=== PATIENT | male | born 1945 | race Caucasian/White ===

== ENCOUNTER 2016-05-30 08:59 | Day surgery (SDC) | payer MEDICARE, OTHER ==
[~2016-05-30 08:59] MED LIST: Lactated Ringers 1,000 ML IV SCH; Sodium Chloride 0.9% 10 ML Syringe FLUSH PRN
[2016-05-30] MEDS ORDERED: Midazolam 1 MG/ML 2 ML SDV ONE ×2 (09:54→10:00)
[2016-05-30] MEDS ORDERED: Propofol 200 MG/20 ML SDV ONE ×2 (09:55→10:00)
--- NOTE | 2016-05-30 09:57 | PCM.PN ---
- General Info Date of Service: 05/30/16 - Review of Systems Systems Review Comment:: 70-year-old male here for colonoscopy. His last colonoscopy was 2 years ago. He has a history of colon polyps including a larger polyp in the transverse colon which was biopsied last time but it was unclear whether that it was completely removed. The patient states he is been feeling well since his last colonoscopy. He denies any rectal bleeding or change in bowel habits. I have discussed the proposed colonoscopy with the patient. He understands indications options and risks and agrees to proceed. There is been no significant change since his recent exam by Rosalio Real. - Patient Data Vitals - most recent: Last Vital Signs Temp 97.3 F 05/30/16 09:35 Pulse 82 05/30/16 09:35 Resp 20 05/30/16 09:35 BP 141/75 H 05/30/16 09:35 Pulse Ox 100 05/30/16 09:35 Weight - most recent: 95.254 kg Med Orders - Current: Current Medications Lactated Ringer's (Ringers, Lactated) 1,000 mls @ 125 mls/hr IV ASDIRECTED [facility] Last Admin: 05/30/16 09:47 Dose: 125 mls/hr Sodium Chloride (Saline Flush) 10 ml FLUSH ASDIRECTED PRN PRN Reason: Keep Vein Open - Problem List Review Problem List Initiated/Reviewed/Updated: Yes - My Orders Last 24 Hours: My Active Orders 05/30/16 08:00 Patient Status [ADT] Routine Patient to Empty Bladder [RC] ASDIRECTED Peripheral IV Care [RC] ROUTINE Verify Patient Consent Obtain [RC] ROUTINE Lactated Ringers [Ringers, Lactated] 1,000 ml IV ASDIRECTED Sodium Chloride 0.9% [Saline Flush] 10 ml FLUSH ASDIRECTED PRN Peripheral IV Insertion Adult [OM.PC] Routine - Assessment Assessment:: History of colon polyps - Plan Plan:: Colonoscopy
--- NOTE | 2016-05-30 10:43 | PCM.OPNOTE ---
- General Post-Op/Procedure Note Date of Surgery/Procedure: 05/30/16 Operative Procedure(s): Colonoscopy with Bx Findings: Sessile Transverse Colon Polyp Mild Sigmoid Diverticulosis Pre Op Diagnosis: History of Colon Polyp Post-Op Diagnosis: Colon Polyp. Diverticulosis Anesthesia Technique: MAC Primary Surgeon: Kailash Marin Pathology: Biopsies of Transverse Colon Polyp Output, Urine Amount: 0 EBL in mLs: 3 Complications: None Condition: Good Free Text/Narrative:: Intake & Output 05/29/16 05/30/16 05/30/16 22:59 06:59 14:59 Intake Total 400 Balance 400
[2016-05-30 11:15] VITALS: BP 121/76
--- NOTE | 2016-05-30 16:57 | OR ---
Date of Procedure: 05/30/2016 PREOPERATIVE DIAGNOSIS: History of colon polyps. POSTOPERATIVE DIAGNOSES: 1. Colon polyp. 2. Diverticulosis. OPERATION PERFORMED: Colonoscopy with biopsy. INDICATIONS FOR SURGERY: This 70-year-old male has a known history of colon polyps including a broad-based polyp which was noted during his last exam in the transverse colon. He comes today for a surveillance colonoscopy. FINDINGS: In the midtransverse colon, the patient has a broad-based flat polyp on a colon fold. It is estimated at 3 cm in size. It is soft and slightly irregular. No other polyps were noted during the exam. The patient has a mild degree of sigmoid diverticulosis. PROCEDURE: The patient was taken to the operating room. He was given intravenous sedation and with him in the left lateral decubitus position, digital rectal exam was performed showing no rectal masses. The Olympus colonoscope was inserted into the rectum. Retroflexed examination of the rectal canal was performed. The scope was then carefully advanced under direct visualization to the mid transverse colon area where the above-described polyp was identified. This polyp was too broad-based to remove using standard colonoscopy polypectomy technique, so multiple cold biopsies were taken of the polyp to establish diagnosis. The polyp was not completely removed in this manner. The scope was then carefully advanced through the remaining length of the colon until the cecum was reached. Cecal acquisition is confirmed by noting the normal internal cecal anatomy including the appendiceal orifice and ileocecal valve. The light was also noted to transilluminate the abdominal wall in the right lower quadrant. The ileocecal valve was cannulated and the terminal ileum was examined and found to also appear normal. The scope was then slowly withdrawn sequentially re-examining the colonic segments until the entire colon and rectum had been examined. With no sign of any complicating process, the scope was removed. The patient was then taken from the operating room in satisfactory condition. ESTIMATED BLOOD LOSS: 3 mL. COMPLICATIONS: None. PROGNOSIS: Good. SHYAM Marin MD /[id number]
== END 2016-05-30 11:30 | disposition home or self-care (01) ==
LOC: LL.SDS 08:59
PROVIDERS: ATTEND Surgery
DX: Z12.11 Encounter for screening for malignant neoplasm of colon (principal); D12.3 Benign neoplasm of transverse colon; K57.30 Diverticulosis of large intestine without perforation or abscess without bleeding; Z88.8 Allergy status to other drugs, medicaments and biological substances; Z90.49 Acquired absence of other specified parts of digestive tract; Z98.890 Other specified postprocedural states; Z79.82 Long term (current) use of aspirin; Z79.899 Other long term (current) drug therapy
CPT/HCPCS: 45380; J2250; J2704; J7120; 00810-QZ; 88305

== ENCOUNTER 2017-09-06 20:33 | Emergency (ER) | payer MEDICARE, OTHER ==
[2017-09-06 20:42] VITALS: BP 142/78
--- NOTE | 2017-09-06 21:24 | EDM.PDOC ---
ED HPI GENERAL MEDICAL PROBLEM - General Chief Complaint: General Stated Complaint: swelling and pain to Right jaw started 2 days ago Time Seen by Provider: 09/06/17 21:00 Source of Information: Reports: Patient History Limitations: Reports: No Limitations - History of Present Illness INITIAL COMMENTS - FREE TEXT/NARRATIVE: right upper jaw/tooth pain and swelling for 3 days. No fever/chills. No GI changes. Recent multiple tooth extraction as well as dental work 3 weeks ago. No other complaints/reported changes. Right Upper Oral/Mouth Pain Score (Numeric/FACES): 7 - Related Data Allergies Allergy/AdvReac Type Severity Reaction Status Date / Time atorvastatin calcium Allergy Shaking Verified 09/06/17 20:35 [From Lipitor] Home Meds: Home Meds Ascorbic Acid 500 mg PO QAM 03/09/14 [History] Calcium Carbonate [Tums Extra Strength] 750 mg PO DAILY 03/09/14 [History] Cholecalciferol (Vitamin D3) [Vitamin D3] 400 units PO QPM@1700 03/09/14 [ History] Famotidine [Pepcid] 20 mg PO BID 03/09/14 [History] Lisinopril [Zestril] 30 mg PO QAM 03/09/14 [History] Metoprolol Succinate [Toprol XL] 25 mg PO DAILY 03/09/14 [History] Docusate Sodium [Colace] 100 mg PO DAILY 02/29/16 [History] Naproxen Na-Diphenhydramin HCl [Aleve Pm Caplet] 1 tab PO BEDTIME 02/29/16 [ History] Omeprazole 40 mg PO DAILY 05/30/16 [History] Oxybutynin Chloride [Ditropan Xl] 10 mg PO DAILY 05/30/16 [History] Rosuvastatin [Crestor] 20 mg PO BEDTIME 05/30/16 [History] Aspirin 81 mg PO DAILY 09/06/17 [History] Clindamycin HCl [Cleocin HCl] 300 mg PO Q8H #9 capsule 09/06/17 [Rx] Past Medical History HEENT History: Reports: Other (See Below) Other HEENT History: tinnitus Cardiovascular History: Reports: Angina, Other (See Below) Other Cardiovascular History: 1st degree AV block, bilateral bundle branch block Respiratory History: Reports: Other (See Below) Other Respiratory History: recent pneumonia 1 month ago Gastrointestinal History: Reports: GERD Genitourinary History: Reports: None Other Genitourinary History: urinary urgency Musculoskeletal History: Reports: Other (See Below) Other Musculoskeletal History: chronic pain syndrome Neurological History: Reports: None Psychiatric History: Reports: None, Anxiety, Depression, Suicidal Ideation Endocrine/Metabolic History: Reports: Vitamin D Deficiency Hematologic History: Reports: None Immunologic History: Reports: None Oncologic (Cancer) History: Reports: None - Infectious Disease History Infectious Disease History: Reports: Chicken Pox, Helicobacter Pylori, Mumps, Rheumatic Fever, Shingles - Past Surgical History Head Surgeries/Procedures: Reports: None HEENT Surgical History: Reports: Other (See Below) Cardiovascular Surgical History: Reports: Carotid Stents, Percutaneous Transluminal Angioplasty Neurological Surgical History: Reports: None Musculoskeletal Surgical History: Reports: Amputation, Other (See Below) Oncologic Surgical History: Reports: None Dermatological Surgical History: Reports: None - Past Imaging History Past Imaging History: Reports: Carotid US, PFT, Stress Testing Social & Family History - Family History HEENT: Reports: None Cardiac: Reports: Bypass, CAD, High Cholesterol, CT Respiratory: Reports: TB GI: Reports: None : Reports: None OBGYN: Reports: None Musculoskeletal: Reports: RA Neurological: Reports: Alzheimers Disease, Dementia Psychiatric: Reports: Anxiety, Depression Endocrine/Metabolic: Reports: Diabetes, type II Hematologic: Reports: None Immunologic: Reports: None Dermatologic: Reports: None Oncologic: Reports: Other (See Below) Other Oncologic Family History: maternal aunt with unknown type of fatal cancer at age 71, paternal aunt with unknown type of fatal cancer in her 70s, paternal grandmother with unknown type of fatal cancer at age 73 - Tobacco Use Smoking Status *Q: Former Smoker Years of Tobacco use: 45 Packs/Tins Daily: 0.5 Used Tobacco, but Quit: Yes Month/Year Tobacco Last Used: 1987 Tobacco Use Comment: chewed for about 5 yrs and then quit Second Hand Smoke Exposure: Yes - Caffeine Use Caffeine Use: Reports: Coffee - Alcohol Use Days Per Week of Alcohol Use: 2 Number of Drinks Per Day: 2 Total Drinks Per Week: 4 - Recreational Drug Use Recreational Drug Use: No - Living Situation & Occupation Living situation: Reports: , with Family Occupation: Employed ED ROS GENERAL - Review of Systems Review Of Systems: See Below Constitutional: Reports: Other (dental pain with eating/hard to chew). Denies: Fever, Chills, Malaise, Weakness, Fatigue, Night Sweats, Diaphoresis HEENT: Reports: Dental Pain. Denies: Ear Pain, Eye Pain, Rhinitis, Sinus Problem, Throat Pain, Throat Swelling, Vertigo, Vision Change Respiratory: Reports: No Symptoms Cardiovascular: Reports: No Symptoms GI/Abdominal: Reports: No Symptoms : Reports: No Symptoms Musculoskeletal: Reports: No Symptoms Skin: Reports: No Symptoms Neurological: Reports: No Symptoms Psychiatric: Reports: No Symptoms Hematologic/Lymphatic: Denies: Swollen Glands ED EXAM, GENERAL - Physical Exam Exam: See Below Exam Limited By: No Limitations General Appearance: Alert, WD/WN, No Apparent Distress Eye Exam: Bilateral Eye: EOMI, PERRL Ears: Normal External Exam Nose: No: Nasal Deformity, Nasal Swelling, Nasal Drainage Throat/Mouth: Normal Lips, Normal Voice, No Airway Compromise, Other (has had multiple teeth pulled, including in area of right upper jaw where pain is present. Does still have back molars in this area. Mild swelling of gums noted. No obvious caries or cracks in molars. No active drainage noted in this area. ) Head: Atraumatic, Normocephalic, Other (no obvious facial asymmetry. ) Neck: Normal Inspection, Supple, Non-Tender, Full Range of Motion. No: Lymphadenopathy (L), Lymphadenopathy (R) Respiratory/Chest: No Respiratory Distress Extremities: Normal Capillary Refill Neurological: Alert, Oriented, CN II-XII Intact, Normal Cognition, Normal Gait Psychiatric: Normal Affect, Normal Mood Skin Exam: Warm, Dry, Intact, Normal Color Course - Vital Signs Last Recorded V/S: Last Vital Signs Temp 36.6 C 09/06/17 20:40 Pulse 67 09/06/17 20:40 Resp 18 09/06/17 20:40 BP 142/78 H 09/06/17 20:40 Pulse Ox 96 09/06/17 20:40 - Re-Assessments/Exams Free Text/Narrative Re-Assessment/Exam: 09/06/17 21:57 Patient does appear to have some swelling around back molars right upper jawline. Will start Clindamycin. Given initial 3 days supply from ER stock. Also given Tramadol to help with the pain. To obtain remaining Clindamycin from pharmacy Friday. To call dentist on Friday and arrange follow up examination next week. Precautions reviewed prior to discharge. To follow up in ER as needed if problems worsen over the weekend. Departure - Departure Time of Disposition: 21:19 Disposition: Home, Self-Care 01 Condition: Good Clinical Impression: Pain, dental - Discharge Information *PRESCRIPTION DRUG MONITORING PROGRAM REVIEWED*: Not Applicable *COPY OF PRESCRIPTION DRUG MONITORING REPORT IN PATIENT ANTHONY: Not Applicable Prescriptions: Clindamycin HCl [Cleocin HCl] 300 mg PO Q8H #9 capsule Instructions: Dental Abscess, [id number] Referrals: Rosalio Moon PA [Primary Care Provider] - Forms: ED Department Discharge Additional Instructions: Take Clindamycin every 8 hours for 7 days for the infection. OK to take Tylenol for pain every 4-6 hours. Take Tramadol 50mg tabs from ER one tablet every 6 hours for additional help with the pain. Call you dentist on Friday and tell them about the pain/swelling and arrange follow up examination. Follow up in the ER if you have worsening problems.
== END 2017-09-06 21:45 | disposition home or self-care (01) ==
LOC: LL.ED 20:33
DX: K08.89 Other specified disorders of teeth and supporting structures (principal); Z88.8 Allergy status to other drugs, medicaments and biological substances; Z79.899 Other long term (current) drug therapy; Z87.891 Personal history of nicotine dependence
CPT/HCPCS: 99283

== ENCOUNTER 2018-06-23 14:22 | Emergency (ER) | payer MEDICARE, OTHER ==
[~2018-06-23 14:22] MED LIST changes: -Lactated Ringers 1,000 ML IV SCH
[2018-06-23] MEDS ORDERED: Sodium Chloride 0.9% 10 ML Syringe FLUSH PRN (14:32)
--- NOTE | 2018-06-23 14:45 | EDM.PDOC ---
ED HPI GENERAL MEDICAL PROBLEM - General Chief Complaint: General Stated Complaint: chest pain Time Seen by Provider: 06/23/18 14:32 Source of Information: Reports: Patient History Limitations: Reports: No Limitations - History of Present Illness INITIAL COMMENTS - FREE TEXT/NARRATIVE: Patient came to ER with complaint of chest pain, central, slightly more on right side of chest than left. No accompanying SOB/diaphoresis/radiation of pain. At its worst it was 3-4/10. Has been lifting/carrying a lot of things at home. Seeded [place] yesterday. Denies injuries. No recent illnesses or other changes. No med changes. Pain started around 30 minutes prior to presentation. Given single NTG in ER, pain completely resolved shortly thereafter. Nothing specifically made pain better/worse, including deep breath/positional changes. No change with rest vs activity. Patient's reports that patient heard today that a friend of of a heart attack today and she feels that there is an anxiety component to the pain. History of stents. Had similar pain in past, was felt some times to be secondary to heartburn. - Related Data Allergies Allergy/AdvReac Type Severity Reaction Status Date / Time atorvastatin calcium Allergy Shaking Verified 06/23/18 14:35 [From Lipitor] Home Meds: Home Meds Ascorbic Acid 500 mg PO QAM 03/09/14 [History] Calcium Carbonate [Tums Extra Strength] 750 mg PO BID 03/09/14 [History] Cholecalciferol (Vitamin D3) [Vitamin D3] 400 units PO QPM@1700 03/09/14 [ History] Famotidine [Pepcid] 20 mg PO BID 03/09/14 [History] Lisinopril [Zestril] 30 mg PO QAM 03/09/14 [History] Metoprolol Succinate [Toprol XL] 25 mg PO DAILY 03/09/14 [History] Docusate Sodium [Colace] 100 mg PO DAILY 02/29/16 [History] Naproxen Na-Diphenhydramin HCl [Aleve Pm Caplet] 1 tab PO BEDTIME 02/29/16 [ History] Omeprazole 40 mg PO DAILY 05/30/16 [History] Oxybutynin Chloride [Ditropan Xl] 10 mg PO DAILY 05/30/16 [History] Rosuvastatin [Crestor] 20 mg PO BEDTIME 05/30/16 [History] Aspirin 81 mg PO DAILY 09/06/17 [History] Citalopram [Citalopram HBr] 20 mg PO DAILY 06/23/18 [History] Diclofenac Sodium [Voltaren] 50 mg PO DAILY 06/23/18 [History] Nitroglycerin [Nitrostat] 0.4 mg SL ASDIRECTED 06/23/18 [History] Past Medical History HEENT History: Reports: Other (See Below) Other HEENT History: tinnitus Cardiovascular History: Reports: Angina, Other (See Below) Other Cardiovascular History: 1st degree AV block, bilateral bundle branch block Respiratory History: Reports: Other (See Below) Other Respiratory History: recent pneumonia 1 month ago Gastrointestinal History: Reports: GERD Genitourinary History: Reports: None Other Genitourinary History: urinary urgency Musculoskeletal History: Reports: Other (See Below) Other Musculoskeletal History: chronic pain syndrome Neurological History: Reports: None Psychiatric History: Reports: None, Anxiety, Depression, Suicidal Ideation Endocrine/Metabolic History: Reports: Vitamin D Deficiency Hematologic History: Reports: None Immunologic History: Reports: None Oncologic (Cancer) History: Reports: None - Infectious Disease History Infectious Disease History: Reports: Chicken Pox, Helicobacter Pylori, Mumps, Rheumatic Fever, Shingles - Past Surgical History Head Surgeries/Procedures: Reports: None HEENT Surgical History: Reports: Other (See Below) Cardiovascular Surgical History: Reports: Carotid Stents, Percutaneous Transluminal Angioplasty Neurological Surgical History: Reports: None Musculoskeletal Surgical History: Reports: Amputation, Other (See Below) Oncologic Surgical History: Reports: None Dermatological Surgical History: Reports: None - Past Imaging History Past Imaging History: Reports: Carotid US, PFT, Stress Testing Social & Family History - Family History HEENT: Reports: None Cardiac: Reports: Bypass, CAD, High Cholesterol, [place] Respiratory: Reports: TB GI: Reports: None : Reports: None OBGYN: Reports: None Musculoskeletal: Reports: RA Neurological: Reports: Alzheimers Disease, Dementia Psychiatric: Reports: Anxiety, Depression Endocrine/Metabolic: Reports: Diabetes, type II Hematologic: Reports: None Immunologic: Reports: None Dermatologic: Reports: None Oncologic: Reports: Other (See Below) Other Oncologic Family History: maternal aunt with unknown type of fatal cancer at age 71, paternal aunt with unknown type of fatal cancer in her 70s, paternal grandmother with unknown type of fatal cancer at age 73 - Caffeine Use Caffeine Use: Reports: Coffee - Living Situation & Occupation Living situation: Reports: , with Family Occupation: Employed ED ROS GENERAL - Review of Systems Review Of Systems: ROS reveals no pertinent complaints other than HPI. ED EXAM, GENERAL - Physical Exam Exam: See Below Exam Limited By: No Limitations General Appearance: Alert, WD/WN, No Apparent Distress, Anxious Eye Exam: Bilateral Eye: EOMI, PERRL Nose: No: Nasal Deformity, Nasal Swelling, Nasal Drainage Throat/Mouth: Normal Voice, No Airway Compromise Head: Atraumatic, Normocephalic Neck: Supple, Non-Tender, Full Range of Motion Respiratory/Chest: No Respiratory Distress, Lungs Clear, Normal Breath Sounds, No Accessory Muscle Use, Chest Non-Tender Cardiovascular: Normal Peripheral Pulses, Regular Rate, Rhythm, No Edema, No Murmur Peripheral Pulses: 2+: Radial (L), Radial (R) GI/Abdominal: Normal Bowel Sounds, Soft, Non-Tender, No Distention (Male) Exam: Deferred Rectal (Males) Exam: Deferred Back Exam: Normal Inspection Extremities: Normal Inspection, Non-Tender, Normal Capillary Refill Neurological: Alert, Oriented, Normal Cognition, Normal Gait, No Motor/Sensory Deficits Psychiatric: Anxious Skin Exam: Warm, Dry, Intact, Normal Color EKG INTERPRETATION EKG Date: 06/23/18 Time: 14:14 Rhythm: Other (Sinus. 1st degree AV block with TN 214ms) Rate (Beats/Min): 65 [place]: Normal P-Wave: Present QRS: Normal ST-T: Normal QT: Normal Comparison: No Change Course - Vital Signs Last Recorded V/S: Last Vital Signs Temp 36.9 C 06/23/18 14:24 Pulse 51 L 06/23/18 16:30 Resp 17 06/23/18 16:30 BP 119/65 06/23/18 16:30 Pulse Ox 93 L 06/23/18 16:30 - Orders/Labs/Meds Orders: Active Orders 24 hr Category Date Time Status EKG Documentation Completion [RC] ASDIRECTED Care 06/23/18 14:33 Active Chest 2V [CR] Stat Exams 06/23/18 14:35 Taken Sodium Chloride 0.9% [Saline Flush] Med 06/23/18 14:32 Active 10 ml FLUSH ASDIRECTED PRN Saline Lock Insert [OM.PC] Stat Oth 06/23/18 14:32 Ordered Medication Orders Sodium Chloride (Saline Flush) 10 ml FLUSH ASDIRECTED PRN PRN Reason: Keep Vein Open Labs: Laboratory Tests 06/23/18 06/23/18 06/23/18 Range/Units 14:20 14:20 14:20 WBC 5.7 (4.0-10.2) K/uL RBC 5.38 (4.33-5.41) M/uL Hgb 16.2 (13.1-16.8) g/dL Hct 46.7 (39.0-49.0) % MCV 86.8 (84.0-98.0) fL MCH 30.1 (28.2-33.3) pg MCHC 34.7 (31.7-36.0) g/dL RDW 14.4 H (11.2-14.1) % Plt Count 172 (150-350) K/uL Neut % (Auto) 67.9 (45.0-80.0) % Lymph % (Auto) 23.9 (10.0-50.0) % [place] % (Auto) 6.7 (2.0-14.0) % Eos % (Auto) 1.1 (0.0-5.0) % Baso % (Auto) 0.4 (0.0-2.0) % Neut # (Auto) 3.86 (1.40-7.00) K/uL Lymph # (Auto) 1.36 (0.50-3.50) K/uL [place] # (Auto) 0.38 (0.00-1.00) K/uL Eos # (Auto) 0.06 (0.00-0.50) K/uL Baso # (Auto) 0.02 (0.00-0.20) K/uL D-Dimer, Quantitative < 100 (0-400) ng/mL Sodium 141 (136-145) mmol/L Potassium 3.8 (3.5-5.1) mmol/L Chloride 103 (98-107) mmol/L Carbon Dioxide 25.8 (21.0-32.0) mmol/L BUN 10 (7-18) mg/dL Creatinine 0.84 (0.51-1.17) mg/dL Est Cr Clr Drug Dosing 88.53 mL/min Estimated GFR (MDRD) > 60 mL/min Glucose 89 (74-106) mg/dL Lactic Acid (0.4-2.0) mmol/L Calcium 9.5 (8.5-10.1) mg/dL Magnesium 1.9 (1.8-2.4) mg/dL Total Bilirubin 0.9 (0.2-1.0) mg/dL AST 22 (15-37) U/L ALT 33 (12-78) U/L Alkaline Phosphatase 63 (46-116) IU/L Troponin I 0.000 (0.000-0.056) ng/mL Total Protein 7.1 (6.4-8.2) g/dL Albumin 4.4 (3.4-5.0) g/dL 06/23/18 06/23/18 Range/Units 14:20 17:29 WBC (4.0-10.2) K/uL RBC (4.33-5.41) M/uL Hgb (13.1-16.8) g/dL Hct (39.0-49.0) % MCV (84.0-98.0) fL MCH (28.2-33.3) pg MCHC (31.7-36.0) g/dL RDW (11.2-14.1) % Plt Count (150-350) K/uL Neut % (Auto) (45.0-80.0) % Lymph % (Auto) (10.0-50.0) % [place] % (Auto) (2.0-14.0) % Eos % (Auto) (0.0-5.0) % Baso % (Auto) (0.0-2.0) % Neut # (Auto) (1.40-7.00) K/uL Lymph # (Auto) (0.50-3.50) K/uL [place] # (Auto) (0.00-1.00) K/uL Eos # (Auto) (0.00-0.50) K/uL Baso # (Auto) (0.00-0.20) K/uL D-Dimer, Quantitative (0-400) ng/mL Sodium (136-145) mmol/L Potassium (3.5-5.1) mmol/L Chloride (98-107) mmol/L Carbon Dioxide (21.0-32.0) mmol/L BUN (7-18) mg/dL Creatinine (0.51-1.17) mg/dL Est Cr Clr Drug Dosing mL/min Estimated GFR (MDRD) mL/min Glucose (74-106) mg/dL Lactic Acid 1.2 (0.4-2.0) mmol/L Calcium (8.5-10.1) mg/dL Magnesium (1.8-2.4) mg/dL Total Bilirubin (0.2-1.0) mg/dL AST (15-37) U/L ALT (12-78) U/L Alkaline Phosphatase (46-116) IU/L Troponin I 0.000 (0.000-0.056) ng/mL Total Protein (6.4-8.2) g/dL Albumin (3.4-5.0) g/dL Meds: Medications Generic Name Dose Route Start Last Admin Trade Name Freq PRN Reason Stop Dose Admin Sodium Chloride 10 ml 06/23/18 14:32 Saline Flush FLUSH ASDIRECTED PRN Keep Vein Open Discontinued Medications Generic Name Dose Route Start Last Admin Trade Name Freq PRN Reason Stop Dose Admin Lorazepam 1 mg 06/23/18 14:35 06/23/18 14:53 Ativan PO 06/23/18 14:36 1 mg ONETIME ONE Administration Nitroglycerin 0.4 mg 06/23/18 14:33 06/23/18 14:52 Nitrostat SL 06/23/18 14:34 0.4 mg ONETIME ONE Administration - Radiology Interpretation Free Text/Narrative:: No acute changes noted on chest xray when compared to previous films. No focal pneumonia/pneumothorax - Re-Assessments/Exams Free Text/Narrative Re-Assessment/Exam: 06/23/18 14:59 Patient remains pain-free. Labs, including CBC/Chem/DDimer/Trop unremarkable. No evidence of ischemia on EKG. Similar presentation in 2017, with resolution of pain after nitro. Unremarkable observation visit at that time. Discussed/recommended similar observation admission to more completely rule out cardiac ischemia. Patient refused admission but was agreeable with staying in ER and having troponin redrawn in 3 hours. If patient remains pain-free, and troponin remains negative, anticipate discharge home and having patient follow up with primary provider. Free Text/Narrative Re-Assessment/Exam: 06/23/18 18:25 Second troponin 0.0 Patient comfortable, remains pain-free. Suspect anxiety/GI etiology for pain. Patient desires to be discharged home. Patient slept during much of stay. Departure - Departure Time of Disposition: 18:20 Disposition: Home, Self-Care 01 Condition: Good Clinical Impression: Chest pain Qualifiers: Chest pain type: unspecified Qualified Code(s): R07.9 - Chest pain, unspecified - Discharge Information *PRESCRIPTION DRUG MONITORING PROGRAM REVIEWED*: Not Applicable *COPY OF PRESCRIPTION DRUG MONITORING REPORT IN PATIENT ANTHONY: Not Applicable Instructions: Nonspecific Chest Pain, [id number] Referrals: Rosalio Moon PA [Primary Care Provider] - Forms: ED Department Discharge Additional Instructions: Follow up with your primary provider within a week for recheck. Return to ER if you have worsening problems/return of chest pain. - My Orders Last 24 Hours: My Active Orders 06/23/18 14:32 Sodium Chloride 0.9% [Saline Flush] 10 ml FLUSH ASDIRECTED PRN Saline Lock Insert [OM.PC] Stat 06/23/18 14:33 EKG Documentation Completion [RC] ASDIRECTED 06/23/18 14:35 Chest 2V [CR] Stat - Assessment/Plan Last 24 Hours: My Active Orders 06/23/18 14:32 Sodium Chloride 0.9% [Saline Flush] 10 ml FLUSH ASDIRECTED PRN Saline Lock Insert [OM.PC] Stat 06/23/18 14:33 EKG Documentation Completion [RC] ASDIRECTED 06/23/18 14:35 Chest 2V [CR] Stat
[2018-06-23] MEDS: Nitroglycerin 0.4 MG Tab.SL SL ONE (14:52)
[2018-06-23 14:53] LABS: CHLORIDE,CL 103 mmol/L (98-107); SODIUM,NA 141 mmol/L (136-145)
[2018-06-23] MEDS: LORazepam 1 MG Tab PO ONE (14:53)
[2018-06-23 16:55] VITALS: BP 119/65
== END 2018-06-23 18:25 | disposition home or self-care (01) ==
LOC: LL.ED 14:22
DX: R07.9 Chest pain, unspecified (principal); F41.9 Anxiety disorder, unspecified; F32.9 Major depressive disorder, single episode, unspecified; Z88.8 Allergy status to other drugs, medicaments and biological substances; Z79.899 Other long term (current) drug therapy; Z79.82 Long term (current) use of aspirin
CPT/HCPCS: 36000; 36415; 71046; 80053; 83605; 83735; 84484; 85025; 85379; 93005; 99285-25; A9270-GY